=== PATIENT | female | born 1955 | race Native Hawaiian/Other Pacific Islander ===

== ENCOUNTER 2022-01-17 21:25 | Emergency (ER) | payer OTHER ==
[~2022-01-17] VITALS: Ht 162.6 cm; Wt 94.3 kg
[2022-01-17 21:25] VITALS: BP 144/74; TEMP 99
[~2022-01-17 21:25] MED LIST: ABILIFY20 MG PO; ALUMSUS6 PO; DIPH25CA90 PO; DOCU100C10 PO; FERROUS SULF325 M1 PO; FIBER LAXATIV0.52 GM PO; FOLI1TAB26 PO; HALO5INJ3 IM; HYDR10TA10 PO; LAMICTAL100 MG PO; LAMICTAL25 MG PO; LORA2INJ21 IM; MAGNSUS68 PO; METHOTREXA IM; METHOTREXA250 MG/10 IJ; PROTONIX20 MG PO; SERT50TA PO; TYLENOL325 MG PO
[2022-01-17 21:53] LABS: POTASSIUM 3.6 mmol/L (3.6-5.2)
[2022-01-17 21:57] LABS: PLATELET COUNT 135 K/uL (152-353)
[2022-01-18] MEDS ORDERED: FE TABS325 MG PO (03:56)
[2022-01-18] MEDS ORDERED: OMEPRAZOLE DR20 MG PO (03:57)
[2022-01-18] MEDS ORDERED: MIRALAX17 GM PO (03:58)
[2022-01-18] MEDS ORDERED: QUET200T28 PO (04:01)
[2022-01-18] MEDS ORDERED: SEROQUEL200 MG PO (04:02)
[2022-01-18] MEDS ORDERED: BISACODYL5 M1 PO (04:04)
[2022-01-18] MEDS ORDERED: METHOTREXATE 25 MG/ML IM (06:28)
[2022-01-18] MEDS ORDERED: MELATONIN3 M1 PO (06:29)
[2022-01-20] MEDS ORDERED: SEROQUEL200 MG PO (11:58)
[2022-01-20] MEDS ORDERED: RISP0.5T2 PO (12:07)
== END 2022-01-17 22:30 | disposition still patient (30) ==
LOC: ED 21:25
PROVIDERS: Emergency Medicine
DX: F03.91 Unspecified dementia, unspecified severity, with behavioral disturbance (principal); Z11.52 Encounter for screening for COVID-19; Z04.6 Encounter for general psychiatric examination, requested by authority
CPT/HCPCS: 36415; 80053; 85027; 87635; 93005; 99283; U0003